=== PATIENT | female | born 1970 | race Caucasian/White ===

== ENCOUNTER 2018-06-11 09:34 | Day surgery (SDC) | payer OTHER ==
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
[2018-06-11] MEDS ORDERED: ceFAZolin 2 GM/DEXTROSE 100 ML IV ONE (09:56)
[2018-06-11] MEDS ORDERED: ACETAMINOPHEN 500 MG TAB PO ONE (09:56)
[2018-06-11] MEDS ORDERED: PREGABALIN 150 MG CAP PO ONE (09:56)
[2018-06-11] MEDS ORDERED: LR 1,000 ML IV ONE (09:57)
[2018-06-11] MEDS ORDERED: EPINEPHrine 30 MG/30 ML MDV (0.1 MG/0.1 ML) ONE (10:23)
[2018-06-11] MEDS ORDERED: BUPIVACAINE 0.25% 30 ML SDV ONE (10:24)
[2018-06-11] MEDS ORDERED: MIDAZOLAM 2 MG/2 ML VIAL IVP ONE (10:27)
[2018-06-11] MEDS ORDERED: SCOPOLAMINE HYDROBROMIDE 1 MG/3 DAYS PATCH TD SCH (10:30)
[2018-06-11] MEDS ORDERED: fentaNYL 100 MCG/2 ML INJ ONE ×3 (10:31→13:34)
[2018-06-11] MEDS ORDERED: PROPOFOL/EMULSION 500 MG/50 ML BOTTLE IV ONE ×2 (10:31→11:59)
[2018-06-11] MEDS ORDERED: ONDANSETRON 4 MG/2 ML VIAL ONE (10:44)
[2018-06-11] MEDS ORDERED: DEXAMETHASONE 4 MG/ML VIAL ONE (10:44)
[2018-06-11] MEDS ORDERED: ROCURONIUM 50 MG/5 ML VIAL ONE (10:44)
[2018-06-11] MEDS ORDERED: KETOROLAC 30 MG/1 ML SDV ONE (10:44)
[2018-06-11] MEDS ORDERED: methylPREDNISolone SOD SUCC 125 MG/2 ML VIAL ONE (10:44)
[2018-06-11] MEDS ORDERED: SUGAMMADEX SODIUM 200 MG/2 ML VIAL IVP ONE (10:45)
[2018-06-11] MEDS ORDERED: RANITIDINE 50 MG/2 ML VIAL ONE (10:54)
[2018-06-11] MEDS ORDERED: PHENYLEPHRINE 10 MG/ML SDV ONE (10:55)
[2018-06-11] MEDS ORDERED: LIDOCAINE 2% 5 ML SDV ONE (11:11)
[2018-06-11] MEDS ORDERED: ePHEDrine SULFATE 25 MG/5 ML SYR ONE (11:33)
[2018-06-11] MEDS ORDERED: LR 500 ML IV PRN (12:40)
[2018-06-11] MEDS ORDERED: HYDROmorphONE/DILAUDID 2 MG/ML INJ IVP PRN (12:40)
[2018-06-11] MEDS ORDERED: PHENYLEPHRINE HCL 100 MCG/ML SYR IVP PRN (12:40)
[2018-06-11] MEDS ORDERED: NALOXONE HCL 0.4 MG/ML INJ IVP PRN (12:40)
[2018-06-11] MEDS ORDERED: MEPERIDINE 25 MG/0.5 ML AMP IVP PRN (12:40)
[2018-06-11] MEDS ORDERED: fentaNYL 100 MCG/2 ML INJ IVP PRN (12:40)
[2018-06-11] MEDS ORDERED: ONDANSETRON 4 MG/2 ML VIAL IVP PRN (12:40)
--- NOTE | 2018-06-11 12:40 | POSTANESTH ---
Post Anesthetic Evaluation Cardiovascular Status: Normal, Stable Respiratory Status: Normal, Stable Level of Consciousness/Mental Status: Can Participate in Eval, Mildly Sleepy, Arousable Pain Control: Inadeq, Add Tx Required Nausea/Vomiting Control: Adequate, Prn Tx Ordered Complications Possibly Related to Anesthesia: None Noted
--- NOTE | 2018-06-11 12:40 | PDANEPAE ---
ANE History of Present Illness left hip scope ANE Past Medical History - Cardiovascular History Hx Hypertension: No Hx Arrhythmias: No Hx Chest Pain: No Hx Coronary Artery / Peripheral Vascular Disease: No Hx CHF / Valvular Disease: No Hx Palpitations: No - Pulmonary History Hx COPD: No Hx Asthma/Reactive Airway Disease: No Hx Recent Upper Respiratory Infection: No Hx Oxygen in Use at Home: No Hx Sleep Apnea: No Sleep Apnea Screening Result - Last Documented: Negative - Neurologic History Hx Cerebrovascular Accident: No Hx Seizures: No Hx Dementia: No - Endocrine History Hx Diabetes: No - Renal History Hx Renal Disorders: No - Liver History Hx Hepatic Disorders: No - Neurological & Psychiatric Hx Hx Neurological and Psychiatric Disorders: Yes Neurological / Psychiatric History Comment: migraines, dysautonomia, frida danlos, MCAS, POTS - Cancer History Hx Cancer: No - Congenital Disorder History Hx Congenital Disorders: No - GI History Gastrointestinal History Comment: GERD, IBS - Other Health History Other Health History: Chung, BPPV (vertigo), mast cell EDS, APS ("sticky blood") , Sjorgrens - Surgical History Prior Surgeries: partial hysterectomy. tonsillectomy. bilateral hip scopes and DFO's ANE Review of Systems Review of systems is: negative Review of Systems: - Exercise capacity METS (RN): 3 METS ANE Patient History - Allergies Allergies/Adverse Reactions: acetaminophen [From Percocet] Allergy (Verified 06/10/18 21:49) Vomiting amitriptyline Allergy (Verified 06/10/18 21:49) oxycodone [From Percocet] Allergy (Verified 06/10/18 21:49) Vomiting sumatriptan [From Imitrex] Allergy (Verified 06/10/18 21:49) topiramate [From Topamax] Allergy (Verified 06/10/18 21:49) - Home Medications Home medications: home medication list seen and reviewed Home Medications: Famotidine [Pepcid] 06/11/18 [Last Taken 06/10/18] Herbals/Supplements -Info Only 06/11/18 [Last Taken 06/10/18] LORazepam [Lorazepam] 06/11/18 [Last Taken 06/10/18] Naproxen 06/11/18 [Last Taken 2 Weeks Ago ~05/28/18] Tylenol 06/11/18 [Last Taken 1 Week Ago ~06/04/18] Zomig 2.5MG (*) 06/11/18 [Last Taken 06/06/18] predniSONE [Prednisone] 06/11/18 [Last Taken 3 Weeks Ago ~05/21/18] - NPO status NPO Since - Liquids (Date): 06/11/18 NPO Since - Liquids (Time): 06:00 NPO Since - Solids (Date): 06/10/18 NPO Since - Solids (Time): 20:00 - Anes Hx Anes Hx: post operative nausea Hx Anesthesia Complications (with details): hemodynamic instability 2/2 dysautonomia - Smoking Hx Smoking Status: Never smoked - Family Anes Hx Family Hx Anesthesia Complications: none known ANE Labs/Vital Signs - Vital Signs Respiratory Rate: 16 O2 Sat (%): 97 Height: 167.64 cm Weight: 63.503 kg ANE Physical Exam - Airway Neck exam: FROM Mallampati Score: Class 1 Mouth exam: normal dental/mouth exam - Pulmonary Pulmonary: no respiratory distress - Cardiovascular Cardiovascular: regular rate and rhythym - ASA Status ASA Status: II ANE Anesthesia Plan Anesthesia Plan: general endotracheal anesthesia Total IV Anesthesia: Yes Urgent/Emergent Case: Rubinasumanth christi completed preop but documented later for safe timely pt care
[2018-06-11] MEDS ORDERED: HYDROmorphONE/DILAUDID 2 MG/ML INJ ONE (13:52)
[2018-06-11] MEDS ORDERED: DIAZEPAM 5 MG/ML 1 ML SYR ONE (13:59)
[2018-06-11] MEDS: DIAZEPAM 5 MG/ML 1 ML SYR IVP PRN ×2 (14:07→14:24)
--- NOTE | 2018-06-11 15:23 | POSTOPPROG ---
Post Op Note Date of Operation: 06/11/18 Surgeon: Jose Luis Gutierrez Machine Heddle Cleaner: Dr. Fuentes Anesthesia: GET(General Endotracheal) Pre-op Diagnosis: LEFT CHRISTY Post-op Diagnosis: LEFT CHRISTY Procedure: Left Hip Arthroscopy Inf/Abcess present in the surg proc area at time of surgery?: No
[2018-06-11] MEDS ORDERED: HYDROmorphONE/DILAUDID 4 MG TAB PO PRN (15:24)
[2018-06-11] MEDS ORDERED: HYDROmorphONE/DILAUDID 2 MG TAB ONE ×2 (15:39→15:47)
[2018-06-11] MEDS ORDERED: HYDROmorphONE/DILAUDID 2 MG TAB PO PRN (16:00)
[2018-06-11 18:20] VITALS: BP 94/63
[2018-06-14] MEDS ORDERED: PATCH REMOVAL 1 EA PATCH TD ONE (10:27)
== END 2018-06-11 18:28 | disposition home or self-care (01) ==
LOC: FSGY 09:34
PROVIDERS: ATTEND Orthopaedic Surgery Sports Medicine
PROC: 0SQB4ZZ Repair Left Hip Joint, Percutaneous Endoscopic Approach (ICD-10-PCS; principal; 2018-06-11 10:45)
DX: M25.852 Other specified joint disorders, left hip (principal); M24.152 Other articular cartilage disorders, left hip; Q65.89 Other specified congenital deformities of hip; M54.2 Cervicalgia
CPT/HCPCS: C1713; J0171; J0690; J1100; J1170; J1200; J1885; J2250; J2370; J2405; J2704; J2780; J2930; J3010; J3360

== ENCOUNTER 2018-06-25 11:31 | Inpatient (IN) | payer OTHER ==
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
[2018-06-25] MEDS ORDERED: SCOPOLAMINE HYDROBROMIDE 1 MG/3 DAYS PATCH TD ONE (12:00)
[2018-06-25] MEDS ORDERED: TRANEXAMIC ACID 1,000 MG in NS 100 ML IV ONE (12:00)
[2018-06-25] MEDS ORDERED: PREGABALIN 150 MG CAP PO ONE (12:00)
[2018-06-25] MEDS ORDERED: ceFAZolin 2 GM/DEXTROSE 100 ML IV ONE (12:00)
[2018-06-25] MEDS ORDERED: ACETAMINOPHEN 500 MG TAB PO ONE (12:00)
[2018-06-25] MEDS ORDERED: LR 1,000 ML IV ONE (12:01)
--- NOTE | 2018-06-25 14:01 | PDANEPAE ---
ANE History of Present Illness L ABHISHEK ANE Past Medical History - Cardiovascular History Hx Hypertension: No Hx Arrhythmias: Yes Hx Chest Pain: No Hx Coronary Artery / Peripheral Vascular Disease: No Hx CHF / Valvular Disease: No Hx Palpitations: Yes Cardiovascular History Comment: POTS/NEUROCARDIOGENIC SYNCOPE - TRIGGERED BY SOME MEDICATIONS AND ANESTHESIA DRUGS - Pulmonary History Hx COPD: No Hx Asthma/Reactive Airway Disease: No Hx Recent Upper Respiratory Infection: No Hx Oxygen in Use at Home: No Hx Sleep Apnea: No Sleep Apnea Screening Result - Last Documented: Negative - Neurologic History Hx Cerebrovascular Accident: No Hx Seizures: No Hx Dementia: No Neurologic History Comment: CHRONIC MIGRAINES. BENIGN PAROXYSMAL POSITIONAL VERTIGO - Endocrine History Hx Diabetes: No - Renal History Hx Renal Disorders: No Renal History Comment: INTERSTITIAL CYSTITIS - Liver History Hx Hepatic Disorders: No - Neurological & Psychiatric Hx Hx Neurological and Psychiatric Disorders: No Neurological / Psychiatric History Comment: migraines, dysautonomia, regina danlos, MCAS, POTS - Cancer History Hx Cancer: No - Congenital Disorder History Hx Congenital Disorders: No - GI History Hx Gastrointestinal Disorders: Yes Gastrointestinal History Comment: GERD. 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 ANTI PHOSPHOLIPID SYNDROME. PAST HX ANEMIA. DERMATITIS - RED PATCHES FACE & SCALP. SJOGRENS SYNDROME - Chronic Pain History Chronic Pain: Yes (EMERSON HIPS, R SHOULDER, NECK) - Surgical History Prior Surgeries: ARTHROSCOPY L HIP. EMERSON FEMOROPLASTY. EMERSON LABRAL REPAIR. HYSTERECTOMY. TONSILECTOMY ANE Review of Systems Review of systems is: negative Review of Systems: - Exercise capacity METS (RN): 4 METS ANE Patient History - Allergies Allergies/Adverse Reactions: amitriptyline Allergy (Verified 06/10/18 21:49) latex Allergy (Verified 06/25/18 12:05) oxycodone [From Percocet] Allergy (Verified 06/10/18 21:49) Vomiting sumatriptan [From Imitrex] Allergy (Verified 06/10/18 21:49) topiramate [From Topamax] Allergy (Verified 06/10/18 21:49) - Home Medications Home medications: home medication list seen and reviewed Home Medications: Famotidine [Pepcid] 06/11/18 [Last Taken 06/15/18] Herbals/Supplements -Info Only 06/11/18 [Last Taken 06/10/18] LORazepam [Lorazepam] 06/11/18 [Last Taken 06/24/18] Naproxen 06/11/18 [Last Taken 06/21/18] Tylenol 06/11/18 [Last Taken 1 Week Ago ~06/04/18] Zomig 2.5MG (*) 06/11/18 [Last Taken 06/11/18] predniSONE [Prednisone] 06/11/18 [Last Taken 06/17/18] Colace 06/17/18 [Last Taken 06/24/18] Senna 06/17/18 [Last Taken 06/22/18] - NPO status NPO Status: no food or drink >8 hours NPO Since - Liquids (Date): 06/25/18 NPO Since - Liquids (Time): 09:00 NPO Since - Solids (Date): 06/24/18 NPO Since - Solids (Time): 19:00 - Anes Hx Anes Hx: post operative nausea, slow to awaken from anesthesia - Smoking Hx Smoking Status: Never smoked - Family Anes Hx Family Anes Hx: none Family Hx Anesthesia Complications: none known ANE Labs/Vital Signs - Labs Result Diagrams: 06/25/18 12:15 - Vital Signs Vital Signs: reviewed preoperatively; see RN documention for details Blood Pressure: 98/72 Heart Rate: 70 Respiratory Rate: 18 O2 Sat (%): 98 Height: 168.91 cm Weight: 63.503 kg ANE Physical Exam - Airway Neck exam: FROM Mallampati Score: Class 2 Mouth exam: normal dental/mouth exam - Pulmonary Pulmonary: no respiratory distress - Cardiovascular Cardiovascular: regular rate and rhythym - ASA Status ASA Status: II ANE Anesthesia Plan Anesthesia Plan: general endotracheal anesthesia, spinal (post op pain)
[2018-06-25] MEDS ORDERED: MIDAZOLAM 2 MG/2 ML VIAL IVP ONE (14:02)
[2018-06-25] MEDS ORDERED: CITRATE DEXTROSE SOLN 500 ML BAG ONE (15:31)
[2018-06-25] MEDS ORDERED: LIDOCAINE 2% 100 MG/5 ML SYR ONE (15:47)
[2018-06-25] MEDS ORDERED: ROCURONIUM 50 MG/5 ML VIAL ONE (15:47)
[2018-06-25] MEDS ORDERED: ONDANSETRON 4 MG/2 ML VIAL ONE (15:47)
[2018-06-25] MEDS ORDERED: SUGAMMADEX SODIUM 200 MG/2 ML VIAL IVP ONE (15:47)
[2018-06-25] MEDS ORDERED: HYDROmorphONE/DILAUDID 2 MG/ML INJ ONE (15:47)
[2018-06-25] MEDS ORDERED: fentaNYL 100 MCG/2 ML INJ ONE (15:47)
[2018-06-25] MEDS ORDERED: DEXAMETHASONE 4 MG/ML VIAL ONE (15:47)
[2018-06-25] MEDS ORDERED: PROPOFOL 200 MG/20 ML VIAL ONE (15:48)
[2018-06-25] MEDS ORDERED: PROPOFOL/EMULSION 500 MG/50 ML BOTTLE IV ONE (15:48)
[2018-06-25] MEDS ORDERED: morphINE PF 5 MG/10 ML INJ ONE (15:51)
[2018-06-25] MEDS ORDERED: ePHEDrine SULFATE 25 MG/5 ML SYR ONE (17:25)
[2018-06-25] MEDS ORDERED: PHENYLEPHRINE 10 MG/ML SDV ONE (17:25)
--- NOTE | 2018-06-25 17:26 | POSTANESTH ---
Post Anesthetic Evaluation Cardiovascular Status: Similar to Pre-Op Cond Respiratory Status: Normal, Stable, Similar to Pre-op Cond. Level of Consciousness/Mental Status: Can Participate in Eval, Mildly Sleepy, Arousable Pain Control: Adequate, Prn Tx Ordered Nausea/Vomiting Control: Adequate, Prn Tx Ordered Complications Possibly Related to Anesthesia: None Noted
[2018-06-25] MEDS ORDERED: ceFAZolin 1 GM VIAL ONE (19:48)
[2018-06-25] MEDS ORDERED: NALOXONE HCL 0.4 MG/ML INJ IVP PRN ×3 (19:58→20:16)
[2018-06-25] MEDS ORDERED: PROMETHAZINE HCL 25 MG/ML INJ IVP PRN (19:58)
[2018-06-25] MEDS ORDERED: HYDROmorphONE/DILAUDID 1 MG/ML INJ IVP PRN (19:58)
[2018-06-25] MEDS ORDERED: MEPERIDINE 25 MG/0.5 ML AMP IVP PRN (19:58)
[2018-06-25] MEDS ORDERED: fentaNYL 100 MCG/2 ML INJ IVP PRN (19:58)
[2018-06-25] MEDS ORDERED: ONDANSETRON 4 MG/2 ML VIAL IVP PRN (20:07)
[2018-06-25] MEDS ORDERED: BISACODYL 10 MG SUPP PR PRN (20:12)
[2018-06-25] MEDS ORDERED: DIAZEPAM 2 MG TAB PO PRN (20:12)
[2018-06-25] MEDS ORDERED: LACTULOSE 20 GM/30 ML UDCUP PO PRN (20:12)
[2018-06-25] MEDS ORDERED: MAGNESIUM HYDROXIDE 30 ML UDCUP PO PRN (20:12)
[2018-06-25] MEDS ORDERED: HYDROmorphONE/DILAUDID 6 MG/30 ML PCA IV PRN (20:16)
[2018-06-25] MEDS ORDERED: diphenhydrAMINE 25 MG CAP PO PRN (20:16)
--- NOTE | 2018-06-25 22:00 | PDCONSULT ---
Underground Foreman Note: 47 year old with pmh of hip dysplalsia admitted for ABHISHEK, currently she is just up from the PACU. She is fairly lethargic but is able to tell me that her pain is well controlled currently. She had been having hip pain for approximately the last 2 months and has noticed that recently her hip feels unstable. She was also noticing a that her hip is waking her at night and is clicking and catching. Sitting is painful as well. Her pain is progressed to the point where her ADLs are now compromised. PMH ehler dre LOVING anti phospholipid syndrome Mast cell activation syndrome sjogrens BPPV hx of retinal maritza infection PSH DFO X2 tonsillectomy hysterectomy Social no drugs, alcohol or tobacco Family hx Non contributory Medications Ativan 1 mg p.r.n. Prednisone 10 mg p.r.n. Ketotifen Naproxen Stool softeners Zomig PRN Pepcid Allergies elavil latex oxycodone sumatriptan topamax Vitals Blood pressure 100/65, heart rate 99, respirations 16, oxygen 99% on 2 L nasal cannula, temperature 36.3 degrees C General- well-appearing female in no acute distress HEENT-PERRLA, atraumatic normocephalic, mucous membranes moist pink and acyanotic Lungs- clear to auscultation bilaterally Cardiovascular- regular rhythm and rate no murmurs rubs gallops normal S1-S2 Abdomen-soft nontender nondistended in all 4 quadrants no organomegaly Extremities- no clubbing cyanosis edema or calf pain Skin- no rashes or ecchymosis Neuro- cranial nerves 2-12 grossly intact no focal neurologic deficits Assessment plan 47-year-old female with past medical history of multiple autoimmune disorders, and postural orthostatic tachycardia syndrome admitted for periacetabular osteotomy Periacetabular osteotomy- management per surgery Postural orthostatic tachycardia syndrome- currently seems to be doing well, blood pressure within normal limits, heart rate upper limit of normal. Would insure that she is well-hydrated, and monitor her electrolytes. If she were to become hypotensive we could certainly give her a dose of midodrine or Florinef. Antiphospholipid syndrome- for which she takes prednisone 10 mg p.r.n.. She does not appear to be in a flare currently History of retinal Maritza infection- she has a bottle of Diflucan with her and was told that she should take Diflucan 200 mg daily perioperatively. I will reorder this tonight but may be worthwhile discussing with Infectious Disease or her counseling program leader to determine how long we should continue this prescription Mast cell activation syndrome- does not appear to be on anything for this Sjogren's- Biotene p.r.n. GERD- Pepcid DVT prophylaxis aspirin for now Thank you for this consult medicine will continue to follow
--- NOTE | 2018-06-25 22:03 | PDMN ---
Medical Necessity Medical necessity: Pt meets inpt criteria per MD order and Musculoskeletal surgery GRG, L periacetabular osteotomy, MC IP only list. 47 y/o w/L hip dysplasia admitted for above surg and post-op care, Dilaudid CARE MGR for pain.
[2018-06-25] MEDS: HYDROmorphONE/DILAUDID 4 MG TAB PO SCH (22:25)
[2018-06-25] MEDS: SENNOSIDES/DOCUSATE SODIUM TAB PO SCH (22:26)
[2018-06-25] MEDS: NAPROXEN SODIUM 220 MG TAB PO SCH (22:26)
[2018-06-25] MEDS: POLYETHYLENE GLYCOL 3350 17 GM PKT PO PRN (22:27)
[2018-06-25] MEDS: LORazepam 0.5 MG TAB PO PRN (22:46)
[2018-06-26] MEDS: HYDROmorphONE/DILAUDID 4 MG TAB PO SCH ×6 (03:22→20:57)
[2018-06-26] MEDS: LORazepam 0.5 MG TAB PO PRN ×2 (03:22→18:23)
--- NOTE | 2018-06-26 08:18 | PDPAINCON ---
Pain Management Consultation Patient referred by : Paige - Subjective Pain at rest (/10): 4 Pain with activity (/10): 8 Pain is: high, but manageable Side effects include: drowsy, itchiness Activity: unable to ambulate - Objective Technique: spinal opioid Vital signs: stable - Assessment/Plan Additional comments: Pt didn't sleep well, itchy, hallucinations, awaiting duramorph to wear off to see if itching subsides. Currently using Benadryl
[2018-06-26] MEDS: PANTOPRAZOLE SODIUM 40 MG TAB PO SCH (08:46)
[2018-06-26] MEDS: NS 1,000 ML IV SCH ×4 (08:48→22:40)
[2018-06-26] MEDS: POLYETHYLENE GLYCOL 3350 17 GM PKT PO PRN (08:48)
[2018-06-26] MEDS: SENNOSIDES/DOCUSATE SODIUM TAB PO SCH ×2 (08:48→20:57)
[2018-06-26] MEDS: NAPROXEN SODIUM 220 MG TAB PO SCH ×3 (08:50→17:56)
[2018-06-26] MEDS ORDERED: FLUCONAZOLE 40 MG/ML UDSYR PO SCH (09:00)
[2018-06-26] MEDS ORDERED: KETOTIFEN PO SCH (09:45)
[2018-06-26] MEDS ORDERED: [UNRECOGNIZED DRUG - OTHER] PO SCH (09:45)
[2018-06-26] MEDS: ACETAMINOPHEN 325 MG TAB PO PRN (10:07)
--- NOTE | 2018-06-26 11:25 | HOSPPROG ---
Hospitalist Progress Note Assessment/Plan: 47-year-old female with past medical history of multiple autoimmune disorders, and postural orthostatic tachycardia syndrome admitted for periacetabular osteotomy. *Periacetabular osteotomy- management per surgery *hypotension -will fluid bolus now -has hx of LOVING (she takes prednisone prn when she has symptoms) *Antiphospholipid syndrome -was dx with this by Dr Gilda Santamaria ([phone] or [phone])-message left to absolutely confirm patient has this -curb sided hematology and they recommended anticoagulation immediately-high risk of arterial and or venous clotting -patient has a letter at her bedside about treatment, but not clearly noted that Cinda has this *History of retinal Maritza infection -takes Diflucan prn for this *Mast cell activation syndrome -takes Ketofifen prn for any itching -Benadryl does not help *Sjogren's- Biotene p.r.n. *anemia -blood loss -will follow *GERD- Pepcid *Roula Danlos DVT prophylaxis aspirin for now *reviewed her care w Dr Brenda Douglas and told him I would confirm her diagnosis of Antiphospholipid syndrome w her PCP. If she does indeed have this, will place her on heparin gtt due her risk of bleeding from her bone. the patient has never had a clot so ? if she truly has Antiphospholipid syndrome, She may have + antibodies but not a true diagnosis for this. I have left two messages with her doctor. In addition, it is not clearly documented in the information sent here by her PCP that she has this, just recommendations on how to treat. Subjective: Cinda is feeling fine, hip pain overall well managed. Objective: Vital Signs Temp Pulse Resp BP Pulse Ox 36.9 C 57 L 18 82/52 L 97 06/26/18 08:00 06/26/18 08:00 06/26/18 08:00 06/26/18 08:00 06/26/18 08:00 Laboratory Results 06/26/18 04:50 06/26/18 04:56 06/25/18 06/26/18 06/27/18 05:59 05:59 05:59 Intake Total 2510 350 Output Total 1550 950 Balance 960 -600 - Physical Exam Constitutional: uncomfortable Eyes: PERRL Ears, Nose, Mouth, Throat: hearing normal Cardiovascular: regular rate and rhythym, no murmur, rub, or gallop Respiratory: no respiratory distress Gastrointestinal: normoactive bowel sounds Genitourinary: kumar in urethra Skin: warm, No normal color (pale) Musculoskeletal: muscular tenderness (left hip) Neurologic: AAOx3 Psychiatric: interacting appropriately ICD10 Worksheet Patient Problems: Problems Problem Status Onset Hip dysplasia Acute - ICD10 Problem Qualifiers (1) Hip dysplasia
[2018-06-26] MEDS ORDERED: NS 250 ML IV ONE (11:56)
[2018-06-26] MEDS ORDERED: NS 500 ML IV ONE ×2 (13:47→20:49)
--- NOTE | 2018-06-26 14:37 | ASMTCMCOM ---
CM Note CM Note Notes: Pt s/p ABHISHEK for hip dysplasia. Pt resides with spouse and child. Hospitalist consulting. PT rec home care/outpatient, OT eval pending. CM to follow pt progress. Pt d/c plan of care likely independent. Date Signed: 06/26/2018 02:36 PM Electronically Signed By:BARBIE Elizabeth
--- NOTE | 2018-06-26 14:47 | ASMTCMCOM ---
CM Note CM Note Notes: Entered in error Date Signed: 06/26/2018 03:37 PM Electronically Signed By:BARBIE Elizabeth
[2018-06-26] MEDS: METHOCARBAMOL 750 MG TAB PO PRN ×2 (14:58→22:39)
[2018-06-26] MEDS: ONDANSETRON 4 MG/2 ML VIAL IVP PRN (17:00)
[2018-06-26] MEDS: KETOTIFEN PO PRN (21:52)
[2018-06-26] MEDS: [UNRECOGNIZED DRUG - OTHER] PO PRN (21:52)
[2018-06-26] MEDS: FLUCONAZOLE 40 MG/ML UDSYR PO SCH (21:53)
[2018-06-26 22:55] LABS: PLATELET COUNT 135 10^3/uL (150-400)
--- NOTE | 2018-06-26 23:51 | SOAPPROG ---
SOAP Progress Note Assessment/Plan: Assessment: 47 yo F POD#1 s/p L ABHISHEK, doing well with some post-operative dizziness, itching. Plan: PO/IV pain control d/c kumar when able to mobilize to bedside commode ASA, SCDs for DVT ppx PT/OT Pelvis XR POD#3, must be cleared by Dr. Gutierrez prior to d/c 06/26/18 23:49 Subjective: Pt reports some dizziness when OOB as well as itching. Pain control adequate. No CP/SOB. Objective: Vital Signs Temp Pulse Resp BP Pulse Ox 36.6 C 57 L 15 90/57 L 96 06/26/18 20:00 06/26/18 20:00 06/26/18 20:00 06/26/18 22:05 06/26/18 20:00 Laboratory Results 06/26/18 22:44 06/26/18 04:56 06/25/18 06/26/18 06/27/18 05:59 05:59 05:59 Intake Total 2510 1600 Output Total 1550 2450 Balance 960 -850 Gen: NAD L hip dressings c/d/i LFCN 10 sensation 5/5 TA, GSC, EHL SILT throughout foot ICD10 Worksheet Patient Problems: Problems Problem Status Onset Hip dysplasia Acute
[2018-06-27] MEDS: HYDROmorphONE/DILAUDID 4 MG TAB PO SCH ×6 (03:18→22:41)
--- NOTE | 2018-06-27 09:26 | HOSPPROG ---
Hospitalist Progress Note Assessment/Plan: 47-year-old female with past medical history of multiple autoimmune disorders, and postural orthostatic tachycardia syndrome admitted for periacetabular osteotomy. *Periacetabular osteotomy- management per surgery *hypotension -will fluid bolus now until blood arrives, she is feeling very dizzy -has hx of LOVING (she takes prednisone prn when she has symptoms) *acute blood loss anemia -transfusion now * Unclear hx of Antiphospholipid syndrome -was dx with this by Dr Gilda Santamaria (her cell is [phone] -available after 12:30 today) -patient has no hx of DVT or PE, no miscarriages -Dr Vincent to see today to help clarify *History of retinal Maritza infection -takes Diflucan prn for this *Mast cell activation syndrome -takes Ketofifen prn for any itching -Benadryl does not help *Sjogren's- Biotene p.r.n. *GERD- Pepcid *Roula Danlos *DVT prophylaxis aspirin *plan: Dr Vincent to see her today, will get his recommendations and f/u with Cinda and her Subjective: Cinda is feeling poorly today. Dizzy, not having significant pain Objective: Vital Signs Temp Pulse Resp BP Pulse Ox 36.8 C 65 12 84/54 L 100 06/27/18 07:44 06/27/18 07:44 06/27/18 07:44 06/27/18 07:44 06/27/18 07:44 Laboratory Results 06/27/18 04:41 06/27/18 04:41 06/26/18 06/27/18 06/28/18 05:59 05:59 05:59 Intake Total 2510 2335 Output Total 1550 3200 550 Balance 960 -865 -550 - Physical Exam Constitutional: uncomfortable Eyes: PERRL Ears, Nose, Mouth, Throat: hearing normal Cardiovascular: regular rate and rhythym Respiratory: no respiratory distress Skin: warm, No normal color (pale) Musculoskeletal: other (swelling left hip) Neurologic: AAOx3 Psychiatric: interacting appropriately ICD10 Worksheet Patient Problems: Problems Problem Status Onset Hip dysplasia Acute - ICD10 Problem Qualifiers (1) Hip dysplasia
[2018-06-27] MEDS: NAPROXEN SODIUM 220 MG TAB PO SCH ×2 (10:00→17:07)
[2018-06-27] MEDS: PANTOPRAZOLE SODIUM 40 MG TAB PO SCH (10:01)
[2018-06-27] MEDS: SENNOSIDES/DOCUSATE SODIUM TAB PO SCH ×2 (10:02→20:59)
[2018-06-27] MEDS: ACETAMINOPHEN 325 MG TAB PO PRN (14:09)
--- NOTE | 2018-06-27 14:42 | SOAPPROG ---
SOAP Progress Note Assessment/Plan: Assessment: Dictation service is non functional at the moment. Dictated note to follow when possible. - Positive antibodies in the Anti-Phospholipid Antibody spectrum - these were found by her primary care provider Dr. Gilda Santamaria. Candace has never had any clinical evidence of VTE or miscarriage. Therefore she does not meet the [place] criteria for APA syndrome. There is always a balance of risk between the risk of VTE post operatively vs. the risk of hemorrhage post op. Because she has never had clinical evidence of clot, the risk of bleeding from the surgery outweighs the risk of thrombosis. - autonomic dysfunction per Dr. Santamaria - mast cell activation syndrome per Dr. Santamaria Plan: - agree with tranfusion - good hydration - I would not recommend full anticoagulation at this time for the above stated reasons. Our service will follow along with you. 06/27/18 14:32 Subjective: Denies any clinical history of thrombosis/VTE or miscarriage. Objective: Vital Signs Temp Pulse Resp BP Pulse Ox 36.7 C 71 12 83/49 L 93 06/27/18 12:00 06/27/18 12:00 06/27/18 12:00 06/27/18 12:00 06/27/18 12:00 Laboratory Results 06/27/18 04:41 06/27/18 04:41 06/25/18 06/26/18 06/27/18 23:59 23:59 23:59 Intake Total 1750 2360 735 Output Total 1550 2450 1600 Balance 200 -90 -865 Physical Exam - Physical Exam General Appearance: alert, no apparent distress Respiratory: lungs clear Cardiac/Chest: regular rate, rhythm Abdomen: normal bowel sounds Skin: other (dressing over incisions dry) Extremities: No calf tenderness, No swelling, No Se's sign Neuro/Psych: alert, normal mood/affect, oriented x 3 ICD10 Worksheet Patient Problems: Problems Problem Status Onset Hip dysplasia Acute
[2018-06-27] MEDS: HYDROmorphONE/DILAUDID 2 MG TAB PO PRN ×2 (16:02→21:01)
[2018-06-27] MEDS: METHOCARBAMOL 750 MG TAB PO PRN (17:06)
[2018-06-27] MEDS: ACETAMINOPHEN 500 MG TAB PO SCH ×2 (17:07→21:00)
[2018-06-27] MEDS: ASPIRIN EC 81 MG TAB PO SCH (20:59)
[2018-06-27] MEDS: KETOTIFEN PO PRN (21:03)
[2018-06-27] MEDS: FLUCONAZOLE 40 MG/ML UDSYR PO SCH (21:03)
[2018-06-27] MEDS: [UNRECOGNIZED DRUG - OTHER] PO PRN (21:03)
--- NOTE | 2018-06-27 22:46 | SOAPPROG ---
SOAP Progress Note Assessment/Plan: Assessment: 2nd post op day Left Periacetabular Osteotomy Multiple autoimmune issues Dysautonomic syndrome Plan: Thanks to Mary Ann and Dr. Vincent for following Oxycodone/FISCAL SERVICES MANAGER SCDs and 81mg aspirin for DVT prophylaxis up with PT/OT Pelvis x-ray tomorrow 06/27/18 22:44 06/27/18 22:47 Subjective: Candace had a challenging day. She reports having hallucinations since surgery, needed transfusion earlier and Molina was pulled out earlier that she had felt comfortable doing so. Her pain is well managed with FISCAL SERVICES MANAGER and Oxycodone. She denies any nausea, cp or sob. She feels better after transfusion. Objective: Vital Signs Temp Pulse Resp BP Pulse Ox 36.8 C 86 16 90/61 L 93 06/27/18 15:25 06/27/18 15:25 06/27/18 15:25 06/27/18 15:25 06/27/18 15:25 Laboratory Results 06/27/18 04:41 06/27/18 04:41 06/26/18 06/27/18 06/28/18 05:59 05:59 05:59 Intake Total 2510 2335 Output Total 1550 3200 1250 Balance 960 -865 -1250 Left Hip: dressings clean dry intact some ecchymosis and edema thigh numbness NVI distally Full ROM of foot and ankle ICD10 Worksheet Patient Problems: Problems Problem Status Onset Hip dysplasia Acute
[2018-06-28] MEDS: NAPROXEN SODIUM 220 MG TAB PO SCH ×4 (00:08→21:50)
[2018-06-28] MEDS ORDERED: NS 1,000 ML IV ONE (00:30)
[2018-06-28] MEDS: HYDROmorphONE/DILAUDID 4 MG TAB PO SCH ×6 (03:38→21:30)
[2018-06-28] MEDS: ONDANSETRON DISINTEGRATING 4 MG TAB PO PRN ×2 (05:22→18:17)
[2018-06-28] MEDS: ACETAMINOPHEN 500 MG TAB PO SCH ×2 (05:22→14:28)
--- NOTE | 2018-06-28 08:57 | HOSPPROG ---
Hospitalist Progress Note Assessment/Plan: 47-year-old female with past medical history of multiple autoimmune disorders, and postural orthostatic tachycardia syndrome admitted for periacetabular osteotomy. *Periacetabular osteotomy- management per surgery *hypotension -had received multiple bolus of fluids and now improved w transfusion -has hx of LOVING (she takes prednisone prn when she has symptoms) -bp low today but is feeling less lightheaded *acute blood loss anemia -transfusion of 1 unit * Unclear hx of Antiphospholipid syndrome -appreciate Dr Vincent, no anticoagulation is needed *History of retinal Maritza infection -takes Diflucan prn for this *Mast cell activation syndrome -takes Ketofifen prn for any itching -Benadryl does not help per the patient *hx of interstitial cystitis, frequent UTI's -voiding without difficulty *headache -hx of migraines, doesn't want to take her home med due to having chest discomfort -encouraged her to have a cup of coffee, this may help *Sjogren's- Biotene p.r.n. *GERD- Pepcid *Roula Danlos *DVT prophylaxis aspirin *plan: supportive care, encouraged her to get OOB Subjective: Cinda is feeling overall better except for a headache. Objective: Vital Signs Temp Pulse Resp BP Pulse Ox 36.8 C 83 18 96/66 L 93 06/28/18 07:42 06/28/18 07:42 06/28/18 07:42 06/28/18 07:42 06/28/18 07:42 Laboratory Results 06/28/18 07:04 06/27/18 04:41 06/27/18 06/28/18 06/29/18 05:59 05:59 05:59 Intake Total 2335 450 Output Total 3200 1800 Balance -865 -1350 - Physical Exam Constitutional: appears nourished, uncomfortable Eyes: PERRL Ears, Nose, Mouth, Throat: hearing normal Cardiovascular: regular rate and rhythym Respiratory: no respiratory distress, clear to auscultation Gastrointestinal: normoactive bowel sounds Skin: warm, other (swelling at left hip area), No normal color (pale) Musculoskeletal: generalized weakness Neurologic: AAOx3 Psychiatric: interacting appropriately ICD10 Worksheet Patient Problems: Problems Problem Status Onset Hip dysplasia Acute - ICD10 Problem Qualifiers (1) Hip dysplasia
[2018-06-28] MEDS: PANTOPRAZOLE SODIUM 40 MG TAB PO SCH (09:59)
[2018-06-28] MEDS: ASPIRIN EC 81 MG TAB PO SCH (09:59)
[2018-06-28] MEDS: SENNOSIDES/DOCUSATE SODIUM TAB PO SCH ×2 (10:00→21:50)
[2018-06-28] MEDS: METHOCARBAMOL 750 MG TAB PO PRN (10:05)
[2018-06-28] MEDS: [UNRECOGNIZED DRUG - OTHER] PO PRN (10:50)
[2018-06-28] MEDS: KETOTIFEN PO PRN (10:50)
--- NOTE | 2018-06-28 11:46 | ASMTCMCOM ---
CM Note CM Note Notes: Met with pt and , she was admitted for dysplasia, she is followed by oncology. PT recommends hc but pt states that her mother is coming to help for a week or two and her also is there to help. CM informed pt that if she wants homecare once she is back home, her PCP can order it, pt expresses understanding. DC Plan: Independent Date Signed: 06/28/2018 11:45 AM Electronically Signed By:Cielo Marshall RN
[2018-06-28] MEDS ORDERED: HYDROCODONE/APAP 10/325 TAB PO PRN (14:41)
--- NOTE | 2018-06-28 16:19 | SOAPPROG ---
SOAP Progress Note Assessment/Plan: Assessment: - Positive antibodies in the Anti-Phospholipid Antibody spectrum - these were found by her primary care provider Dr. Gilda Santamaria. Candace has never had any clinical evidence of VTE or miscarriage. Therefore she does not meet the [place] criteria for APA syndrome. There is always a balance of risk between the risk of VTE post operatively vs. the risk of hemorrhage post op. Because she has never had clinical evidence of clot, the risk of bleeding from the surgery outweighs the risk of thrombosis. So far, she has shown no overt bleeding. She responded nicely to 1 unit PRBC yesterday. Hgb now stable in the mid 9 range. Will continue to monitor. On prophylactic ASA. - autonomic dysfunction per Dr. Santamaria - mast cell activation syndrome per Dr. Santamaria Plan: - monitor hgb - good hydration - I would not recommend full anticoagulation at this time for the above stated reasons. Our service will follow along with you. Subjective: some pain and dizziness. In general she is having a better day. She is up in chair. Objective: Vital Signs Temp Pulse Resp BP Pulse Ox 36.4 C 59 L 18 104/74 95 06/28/18 15:35 06/28/18 15:35 06/28/18 15:35 06/28/18 15:35 06/28/18 15:35 Laboratory Results 06/28/18 07:04 06/27/18 04:41 06/26/18 06/27/18 06/28/18 23:59 23:59 23:59 Intake Total 2360 735 450 Output Total 2450 1256 701 Balance -07 -3948 -818 Physical Exam - Physical Exam General Appearance: mild distress Respiratory: lungs clear Cardiac/Chest: regular rate, rhythm Abdomen: normal bowel sounds, non-tender, soft Skin: warm/dry, pallor Neuro/Psych: oriented x 3 ICD10 Worksheet Patient Problems: Problems Problem Status Onset Hip dysplasia Acute
[2018-06-28] MEDS: ONDANSETRON 4 MG/2 ML VIAL IVP PRN (18:47)
[2018-06-28] MEDS: FLUCONAZOLE 40 MG/ML UDSYR PO SCH (21:50)
[2018-06-28] MEDS ORDERED: ONDANSETRON 4 MG/2 ML VIAL IVP ONE (22:00)
[2018-06-29] MEDS: PROMETHAZINE HCL 25 MG/ML INJ IVP PRN ×2 (00:56→08:02)
[2018-06-29] MEDS: METHOCARBAMOL 750 MG TAB PO PRN ×3 (01:05→20:03)
[2018-06-29] MEDS: HYDROmorphONE/DILAUDID 4 MG TAB PO SCH ×6 (01:27→20:35)
[2018-06-29] MEDS: NAPROXEN SODIUM 220 MG TAB PO SCH ×3 (09:13→20:35)
[2018-06-29] MEDS: ASPIRIN EC 81 MG TAB PO SCH (12:24)
[2018-06-29] MEDS: PANTOPRAZOLE SODIUM 40 MG TAB PO SCH (12:25)
[2018-06-29] MEDS: POLYETHYLENE GLYCOL 3350 17 GM PKT PO PRN (12:31)
[2018-06-29] MEDS: ONDANSETRON DISINTEGRATING 4 MG TAB PO PRN (12:31)
[2018-06-29] MEDS: SENNOSIDES/DOCUSATE SODIUM TAB PO SCH ×2 (13:42→20:35)
[2018-06-29] MEDS ORDERED: MECLIZINE HCL 12.5 MG TAB PO PRN (14:19)
--- NOTE | 2018-06-29 14:46 | HOSPPROG ---
Hospitalist Progress Note Assessment/Plan: 47-year-old female with past medical history of multiple autoimmune disorders, and postural orthostatic tachycardia syndrome admitted for periacetabular osteotomy. *Periacetabular osteotomy- management per surgery *hypotension -had received multiple bolus of fluids and now improved w transfusion -has hx of LOVING (she takes prednisone prn when she has symptoms) -bp low but better, up in chair -has bouts of dizziness, trial of meclizine *acute blood loss anemia -transfusion of 1 unit * + antibodies seen w Antiphospholipid spectrum -appreciate Dr Vincent, no anticoagulation is needed *History of retinal Maritza infection -takes Diflucan prn for this *Mast cell activation syndrome -takes Ketofifen prn for any itching -Benadryl does not help per the patient *hx of interstitial cystitis, frequent UTI's -voiding without difficulty *headache -resolved *Sjogren's- Biotene p.r.n. *GERD- Pepcid *Roula Danlos *DVT prophylaxis aspirin *plan: scheduled Tylenol, scheduled Miralax. Added Meclizine for dizziness. Hopefully home soon. Subjective: Cinda is anxious to go home. Pain is well managed, she had not taken narcotics for awhile. Objective: Vital Signs Temp Pulse Resp BP Pulse Ox 36.4 C 84 16 96/63 L 94 06/29/18 07:25 06/29/18 07:25 06/29/18 07:25 06/29/18 07:25 06/29/18 07:25 Laboratory Results 06/29/18 04:27 06/27/18 04:41 06/28/18 06/29/18 06/30/18 05:59 05:59 05:59 Intake Total 450 650 Output Total 1800 300 Balance -1350 -300 650 - Physical Exam Constitutional: no apparent distress, appears nourished Eyes: PERRL Ears, Nose, Mouth, Throat: hearing normal Cardiovascular: regular rate and rhythym Gastrointestinal: normoactive bowel sounds Skin: warm, No normal color (pale) Musculoskeletal: generalized weakness Neurologic: AAOx3 Psychiatric: interacting appropriately ICD10 Worksheet Patient Problems: Problems Problem Status Onset Hip dysplasia Acute - ICD10 Problem Qualifiers (1) Hip dysplasia
[2018-06-29] MEDS: ACETAMINOPHEN 500 MG TAB PO SCH ×2 (15:33→23:44)
[2018-06-29] MEDS ORDERED: PROMETHAZINE HCL 25 MG/ML INJ IVP PRN (18:29)
[2018-06-29] MEDS: PSYLLIUM METAMUCIL 1 PKT PO SCH (20:34)
[2018-06-29] MEDS: POLYETHYLENE GLYCOL 3350 17 GM PKT PO SCH (20:35)
[2018-06-29] MEDS: FLUCONAZOLE 40 MG/ML UDSYR PO SCH (20:35)
[2018-06-30] MEDS: METHOCARBAMOL 750 MG TAB PO PRN ×2 (00:09→09:25)
[2018-06-30] MEDS: HYDROmorphONE/DILAUDID 4 MG TAB PO SCH ×3 (01:19→11:54)
[2018-06-30] MEDS: ACETAMINOPHEN 500 MG TAB PO SCH ×2 (05:14→05:27)
[2018-06-30 07:56] VITALS: BP 114/72
[2018-06-30] MEDS: ONDANSETRON DISINTEGRATING 4 MG TAB PO PRN (09:24)
[2018-06-30] MEDS: ASPIRIN EC 81 MG TAB PO SCH (09:27)
[2018-06-30] MEDS: POLYETHYLENE GLYCOL 3350 17 GM PKT PO SCH (09:28)
[2018-06-30] MEDS: NAPROXEN SODIUM 220 MG TAB PO SCH (09:28)
[2018-06-30] MEDS: PANTOPRAZOLE SODIUM 40 MG TAB PO SCH (09:28)
[2018-06-30] MEDS: SENNOSIDES/DOCUSATE SODIUM TAB PO SCH (09:28)
[2018-06-30] MEDS: PSYLLIUM METAMUCIL 1 PKT PO SCH (09:28)
[2018-06-30] MEDS: HYDROmorphONE/DILAUDID 2 MG TAB PO PRN (11:55)
--- NOTE | 2018-06-30 11:58 | HOSPPROG ---
Hospitalist Progress Note Assessment/Plan: 47-year-old female with past medical history of multiple autoimmune disorders, and postural orthostatic tachycardia syndrome admitted for periacetabular osteotomy. *Periacetabular osteotomy- management per surgery *hypotension -had received multiple bolus of fluids and now improved w transfusion -has hx of LOVING (she takes prednisone prn when she has symptoms) -resolved *acute blood loss anemia -transfusion of 1 unit * + antibodies seen w Antiphospholipid spectrum -appreciate Dr Vincent, no anticoagulation is needed *History of retinal Maritza infection -takes Diflucan prn for this *Mast cell activation syndrome -takes Ketofifen prn for any itching -Benadryl does not help per the patient *hx of interstitial cystitis, frequent UTI's -c/o increase burning and pain w urination -will check a ua now *headache -resolved *Sjogren's- Biotene p.r.n. *GERD- Pepcid *Roula Danlos *DVT prophylaxis aspirin *plan: dc per orthopedics Subjective: Cinda has some ongoing nausea that comes and goes Objective: Vital Signs Temp Pulse Resp BP Pulse Ox 36.7 C 77 16 114/72 94 06/30/18 07:55 06/30/18 07:55 06/30/18 07:55 06/30/18 07:55 06/30/18 07:55 Laboratory Results 06/29/18 04:27 06/27/18 04:41 06/29/18 06/30/18 07/01/18 05:59 05:59 05:59 Intake Total 1300 Output Total 300 400 Balance -300 900 - Physical Exam Constitutional: no apparent distress, appears nourished Eyes: PERRL Ears, Nose, Mouth, Throat: hearing normal Respiratory: no respiratory distress Skin: warm, No normal color (pale) Musculoskeletal: generalized weakness Neurologic: AAOx3 Psychiatric: interacting appropriately ICD10 Worksheet Patient Problems: Problems Problem Status Onset Hip dysplasia Acute - ICD10 Problem Qualifiers (1) Hip dysplasia
--- NOTE | 2018-06-30 12:55 | SOAPPROG ---
SOAP Progress Note Assessment/Plan: Assessment: 4th post op day Left Periacetabular Osteotomy Multiple autoimmune issues Dysautonomic syndrome Plan: Thanks to Mary Ann and Dr. Vincent for following D/C home 06/27/18 22:44 06/27/18 22:47 06/30/18 12:51 Subjective: LATE ENTRY Pt seen last night at 1700. At that time pt was well pain controlled, she was still having some nausea, hadn't had a bowel movement. Objective: Vital Signs Temp Pulse Resp BP Pulse Ox 36.7 C 77 16 114/72 94 06/30/18 07:55 06/30/18 07:55 06/30/18 07:55 06/30/18 07:55 06/30/18 07:55 Laboratory Results 06/29/18 04:27 06/27/18 04:41 06/29/18 06/30/18 07/01/18 05:59 05:59 05:59 Intake Total 1300 Output Total 300 400 Balance -300 900 Well appearing in NAD Left hip: dressings clean dry intact ecchymosis and edema thigh numbness NVI distally full ROM of foot and ankle ICD10 Worksheet Patient Problems: Problems Problem Status Onset Hip dysplasia Acute
== END 2018-06-30 14:13 | disposition home or self-care (01) | DRG 516 ==
LOC: F1N 11:31 → EDSTATUS 14:15 → F3N 17:52 → OBSVTOIN 20:19 → F3N 21:30
PROVIDERS: ADMIT Orthopaedic Surgery Sports Medicine; ATTEND Orthopaedic Surgery Sports Medicine
PROC: 0QS504Z Reposition Left Acetabulum with Internal Fixation Device, Open Approach (ICD-10-PCS; principal; 2018-06-25 13:00)
DX: Q65.89 Other specified congenital deformities of hip (principal); D68.61 Antiphospholipid syndrome; D62 Acute posthemorrhagic anemia; I95.9 Hypotension, unspecified; I49.8 Other specified cardiac arrhythmias; D89.40 Mast cell activation, unspecified; M35.00 Sjogren syndrome, unspecified; K21.9 Gastro-esophageal reflux disease without esophagitis; G43.909 Migraine, unspecified, not intractable, without status migrainosus; H81.10 Benign paroxysmal vertigo, unspecified ear
CPT/HCPCS: 97116-GP; 97161-GP; 97165-GO; 97530-GO; 97530-GP; 97535-GO; C1713; J0690; J1100; J1170; J1200; J2001; J2250; J2274; J2370; J2405; J2550; J2704; J3010; P9016; P9021